=== PATIENT | female | born 1970 | race Caucasian/White ===

== ENCOUNTER 2022-07-07 11:45 | Observation (INO) | payer BC, OTHER ==
[2022-07-07 12:02] LABS: Absolute Lymphocytes (CBC) 2.1 K/uL (0.7-4.9); Hematocrit 41.4 % (36.0-45.0); Lymphocytes % 29.6 % (15.3-44.8); MCV 90.2 fL (80-100); MPV 7.1 fL (7.6-11.3); RBC Red Blood Cell Count 4.59 M/uL (3.86-4.86)
[2022-07-07] MEDS ORDERED: ASPIRIN EC 325 MG TABLET PO ONE (12:05)
[2022-07-07] MEDS ORDERED: NITROGLYCERIN 0.4 MG/TAB SL ONE (12:05)
[2022-07-07 12:21] LABS: Potassium 3.6 mmol/L (3.5-5.1)
--- NOTE | 2022-07-07 12:25 | RAD REPORT ---
EXAM DESCRIPTION: Dhiraj Single View07/07/2022 12:20 pm CLINICAL HISTORY: Chest pain COMPARISON: none FINDINGS: The lungs appear clear of acute infiltrate. The heart is normal size IMPRESSION: No acute abnormalities displayed
[2022-07-07 12:33] LABS: Troponin High Sensitivity 61.1 pg/mL (<58.9)
--- NOTE | 2022-07-07 12:46 | EDPHYS ---
Physician Documentation [facility] Name: Tawnya Galdamez Age: 51 yrs Sex: Female : 1970 Arrival Date: 07/07/2022 Time: 11:47 Bed 13 Private MD: ED Physician Jerome Siddiqui HPI: 07/07 12:18 This 51 yrs old Female presents to ER via Ambulatory with complaints of Chest Pain. rt 12:18 The patient or guardian reports chest pain that is located primarily in the substernal rt area. Onset: 2 hour(s) ago. The pain radiates to the left arm. Associated signs and symptoms: The patient has no apparent associated signs or symptoms. The chest pain is described as a pressure. Duration: The patient or guardian reports a single episode, that is still ongoing, but improving. Modifying factors: The symptoms are alleviated by nothing. the symptoms are aggravated by nothing. Severity of pain: At its worst the pain was moderate. The patient has not experienced similar symptoms in the past. Presents to the ED with a chest pain starting at 30 minutes prior to arrival. She started having a nonexertional left arm pain about 2 hours prior to arrival. The patient reports that there is some improvement of the symptoms however, they are still present. Denies other acute complaints at this time, symptoms are moderate in severity, no other aggravating or alleviating factors.. Historical: - Allergies: 11:54 No Known Allergies; iw - Home Meds: 11:54 None [Active]; iw - PMHx: 11:54 None; iw - PSHx: 11:54 back; tubal ligation; iw - Social history:: Smoking status: Patient reports the use of cigarette tobacco products, smokes one pack cigarettes per day. - Family history:: pertinent for heart disease. ROS: 12:18 Constitutional: Negative for fever, chills, and weight loss, Eyes: Negative for injury, rt pain, redness, and discharge, ENT: Negative for injury, pain, and discharge, Neck: Negative for injury, pain, and swelling, Respiratory: Negative for shortness of breath, cough, wheezing, and pleuritic chest pain, Abdomen/GI: Negative for abdominal pain, nausea, vomiting, diarrhea, and constipation, Back: Negative for injury and pain, MS/Extremity: Negative for injury and deformity, Skin: Negative for injury, rash, and discoloration, Neuro: Negative for headache, weakness, numbness, tingling, and seizure, Psych: Negative for depression, anxiety, suicide ideation, homicidal ideation, and hallucinations. 12:18 Cardiovascular: Positive for chest pain, Negative for edema. Exam: 12:18 Constitutional: This is a well developed, well nourished patient who is awake, alert, rt and in no acute distress. Head/Face: Normocephalic, atraumatic. Eyes: Pupils equal round and reactive to light, extra-ocular motions intact. Lids and lashes normal. Conjunctiva and sclera are non-icteric and not injected. Cornea within normal limits. Periorbital areas with no swelling, redness, or edema. ENT: Nares patent. No nasal discharge, no septal abnormalities noted. Tympanic membranes are normal and external auditory canals are clear. Oropharynx with no redness, swelling, or masses, exudates, or evidence of obstruction, uvula midline. Mucous membranes moist. Neck: Trachea midline, no thyromegaly or masses palpated, and no cervical lymphadenopathy. Supple, full range of motion without nuchal rigidity, or vertebral point tenderness. No Meningismus. Chest/axilla: Normal chest wall appearance and motion. Nontender with no deformity. No lesions are appreciated. Cardiovascular: Regular rate and rhythm with a normal S1 and S2. No gallops, murmurs, or rubs. Normal PMI, no JVD. No pulse deficits. Respiratory: Lungs have equal breath sounds bilaterally, clear to auscultation and percussion. No rales, rhonchi or wheezes noted. No increased work of breathing, no retractions or nasal flaring. Abdomen/GI: Soft, non-tender, with normal bowel sounds. No distension or tympany. No guarding or rebound. No evidence of tenderness throughout. Back: No spinal tenderness. No costovertebral tenderness. Full range of motion. Skin: Warm, dry with normal turgor. Normal color with no rashes, no lesions, and no evidence of cellulitis. MS/ Extremity: Pulses equal, no cyanosis. Neurovascular intact. Full, normal range of motion. Neuro: Awake and alert, GCS 15, oriented to person, place, time, and situation. Cranial nerves II-XII grossly intact. Motor strength 5/5 in all extremities. Sensory grossly intact. Cerebellar exam normal. Normal gait. Psych: Awake, alert, with orientation to person, place and time. Behavior, mood, and affect are within normal limits. 12:18 ECG was reviewed by the Attending Physician. rt Vital Signs: 11:52 BP 152 / 72; Pulse 52; Resp 16; Temp 98.0; Pulse Ox 98% on R/A; iw 12:28 BP 148 / 76; Pulse 50; Resp 18; Pulse Ox 99% on R/A; ko1 MDM: 11:50 Patient medically screened. rt 12:46 Differential diagnosis: abnormal EKG, acute myocardial infarction, acute pericarditis, rt chest wall pain, congestive heart failure pneumonia, pneumothorax. HEART Score: History: Highly Suspicious (2), ECG: Non specific repolarization disturbance / LBTB / PM (1), Age: > 45 and < 65 years (1), Risk Factors: > or = 3 Risk factors for atherosclerotic disease (2), [Active Smoker] [+ Family HX] [Obesity] Troponin: > 1 and < 3 x normal limit (1), Total Score = 6. Data reviewed: vital signs, nurses notes, lab test result(s), EKG, radiologic studies. ED course: Presents to the ED with chest pain that is resolved with nitrates. Patient was given aspirin. Patient with nonspecific EKG findings, slightly elevated troponin. Will be admitted for further care. Do not suspect PE, pneumothorax, TAD, pneumonia.. 07/07 11:51 Order name: Basic Metabolic Panel; Complete Time: 12:36 ld1 07/07 11:51 Order name: CBC with Diff; Complete Time: 12:32 ld1 07/07 11:51 Order name: Troponin HS; Complete Time: 12:36 ld1 07/07 12:52 Order name: Creatine Phosphokinase; Complete Time: 15:09 EDMS 07/07 12:52 Order name: Magnesium; Complete Time: 15:09 EDMS 07/07 12:52 Order name: NT PRO-BNP; Complete Time: 15:09 EDMS 07/07 12:52 Order name: Phosphorus; Complete Time: 15:09 EDMS 07/07 12:52 Order name: T4 Free; Complete Time: 15:09 EDMS 07/07 12:53 Order name: Thyroid Stimulating Hormone; Complete Time: 15:09 EDMS 07/07 12:53 Order name: Urinalysis [facility] 07/07 12:53 Order name: Basic Metabolic Panel [facility] 07/07 12:53 Order name: Basic Metabolic Panel [facility] 07/07 12:53 Order name: CBC with Automated Diff [facility]WA 07/07 12:53 Order name: CBC with Automated Diff [facility] 07/07 11:51 Order name: XRAY Chest (1 view); Complete Time: 12:32 ld1 07/07 11:51 Order name: EKG; Complete Time: 11:52 ld 07/07 11:51 Order name: Cardiac monitoring; Complete Time: 12:39 ld1 07/07 11:51 Order name: EKG - Nurse/Tech; Complete Time: 11:51 ld 07/07 12:52 Order name: Heart Healthy [facility]WA 07/07 12:55 Order name: Echo with Doppler [facility] 07/07 12:55 Order name: Troponin High Sensitivity [facility] 07/07 12:55 Order name: Troponin High Sensitivity [facility] 07/07 12:55 Order name: Troponin High Sensitivity [facility] 07/07 12:57 Order name: Hemoglobin A1c [facility] 07/07 12:57 Order name: Lipid Profile; Complete Time: 15:09 [facility]WA 07/07 13:02 Order name: COVID-19 SARS RT PCR rt 07/07 14:50 Order name: SARS-COV-2 Antigen Rapid; Complete Time: 15:09 [facility] 07/07 15:09 Order name: EKG; Complete Time: 15:10 rt 07/07 11:51 Order name: IV Saline Lock; Complete Time: 11:52 [facility] 07/07 11:51 Order name: Labs collected and sent; Complete Time: 11:52 [facility] 07/07 11:51 Order name: O2 Per Protocol; Complete Time: 11:52 [facility] 07/07 11:51 Order name: O2 Sat Monitoring; Complete Time: 11:52 [facility] 07/07 15:09 Order name: EKG - Nurse/Tech; Complete Time: 15:17 rt EC:18 Rate is 46 beats/min. Rhythm is regular, Sinus bradycardia with No ectopy. QRS [place] is rt Normal. VA interval is normal. QRS interval is normal. QT interval is normal. No Q waves. Clinical impression: NSR w/ Non-specific ST/T Changes. Interpreted by me. 15:20 Rate is 52 beats/min. Rhythm is regular, Sinus bradycardia with No ectopy. QRS [place] is rt Normal. VA interval is normal. QRS interval is normal. Clinical impression: NSR w/ Non-specific ST/T Changes. Interpreted by me. Administered Medications: 12:07 Drug: Nitroglycerin 0.4 mg Route: Sublingual; iw 12:07 Drug: Aspirin 325 mg Route: PO; iw Disposition Summary: 07/07/22 12:45 Hospitalization Ordered Hospitalization Status: Observation rt Provider: Ruben Dhillon rt Location: Telemetry/MedSurg (observation) rt Condition: Stable rt Problem: new rt Symptoms: have improved rt Bed/Room Type: Standard rt Room Assignment: rt Diagnosis - Chest pain, unspecified rt Forms: - Medication Reconciliation Form rt - SBAR form rt Signatures: Dispatcher [employer] Karol Williamson RN RN iw Leah Cortez RN RN ld1 Jerome Siddiqui MD MD rt
--- NOTE | 2022-07-07 12:46 | ER ---
Nurse's Notes [facility] Name: Tawnya Galdamez Age: 51 yrs Sex: Female : 1970 Arrival Date: 07/07/2022 Time: 11:47 Bed 13 Private MD: Diagnosis: Chest pain, unspecified Presentation: 07/07 11:52 Chief complaint: Patient states: sitting at her desk and her left arm started hurting iw about 2 hours ago, then about 30 minutes ago she started having midsternal chest pain, feels like pressure and at times sharp. Coronavirus screen: At this time, the client does not indicate any symptoms associated with coronavirus-19. Ebola Screen: Patient negative for fever greater than or equal to 101.5 degrees Fahrenheit, and additional compatible Ebola Virus Disease symptoms Patient denies exposure to infectious person. Patient denies travel to an Ebola-affected area in the 21 days before illness onset. No symptoms or risks identified at this time. Initial Sepsis Screen: Does the patient meet any 2 criteria? No. Patient's initial sepsis screen is negative. Does the patient have a suspected source of infection? No. Patient's initial sepsis screen is negative. Risk Assessment: Do you want to hurt yourself or someone else? Patient reports no desire to harm self or others. Onset of symptoms was July 07, 2022. 11:52 Method Of Arrival: Ambulatory iw 11:52 Acuity: CITLALI 2 iw Historical: - Allergies: 11:54 No Known Allergies; iw - Home Meds: 11:54 None [Active]; iw - PMHx: 11:54 None; iw - PSHx: 11:54 back; tubal ligation; iw - Social history:: Smoking status: Patient reports the use of cigarette tobacco products, smokes one pack cigarettes per day. - Family history:: pertinent for heart disease. Screenin:28 Abuse screen: Denies threats or abuse. Denies injuries from another. Nutritional ko1 screening: No deficits noted. Tuberculosis screening: No symptoms or risk factors identified. Fall Risk None identified. Assessment: 11:57 General: Appears in no apparent distress. uncomfortable, Behavior is calm, cooperative, ko1 appropriate for age. Pain: Complains of pain in chest Pain does not radiate. Pain began gradually. Neuro: No deficits noted. Cardiovascular: Reports chest pain. Respiratory: No deficits noted. GI: No deficits noted. : No deficits noted. EENT: No deficits noted. Derm: No deficits noted. Musculoskeletal: No deficits noted. Vital Signs: 11:52 BP 152 / 72; Pulse 52; Resp 16; Temp 98.0; Pulse Ox 98% on R/A; iw 12:28 BP 148 / 76; Pulse 50; Resp 18; Pulse Ox 99% on R/A; ko1 ED Course: 11:47 Patient arrived in ED. mr 11:48 Jerome Siddiqui MD is Attending Physician. rt 11:52 Inserted saline lock: 20 gauge in right antecubital area, using aseptic technique. ld1 Blood collected. 11:54 Triage completed. iw 11:54 Arm band placed on. iw 12:00 Patient maintains SpO2 saturation greater than 95% on room air. ko1 12:00 Patient has correct armband on for positive identification. Placed in gown. Bed in low ko1 position. Call light in reach. Side rails up X 1. Client placed on continuous cardiac and pulse oximetry monitoring. NIBP monitoring applied. cardiac monitor on. 12:02 Conchita Warren, RN is Primary Nurse. ko1 12:21 XRAY Chest (1 view) In Process Unspecified. EDMS 12:45 Ruben Dhillon MD is Hospitalizing Provider. rt 14:25 COVID-19 SARS RT PCR Sent. ko1 16:16 No provider procedures requiring assistance completed. Patient admitted, IV remains in iw place. Administered Medications: 12:07 Drug: Nitroglycerin 0.4 mg Route: Sublingual; iw 12:07 Drug: Aspirin 325 mg Route: PO; iw Medication: 16:16 VIS not applicable for this client. iw Outcome: 12:45 Decision to Hospitalize by Provider. rt 16:16 Admitted to Data Librarian accompanied by nurse, family with patient, via stretcher, on iw monitor, with chart. 16:16 Condition: good 16:16 Discharge instructions given to patient, family, Instructed on the need for admit, Demonstrated understanding of instructions, follow-up care. 16:17 Patient left the ED. iw Signatures: Dispatcher [facility] Anjel Janette mr Karol Martinez RN RN iw Leah Cortez RN RN ld1 Conchita Warren, BUTCH RN ko1 Jerome Siddiqui MD MD rt Corrections: (The following items were deleted from the chart) 12:13 11:52 BP 152 / 72; Pulse 52bpm; Resp 16bpm; Pulse Ox 98% RA; iw iw
[2022-07-07] MEDS ORDERED: ACETAMINOPHEN 325 MG TABLET PO PRN (12:48)
[2022-07-07] MEDS ORDERED: HYDROCODONE/APAP 5/325 MG TAB PO PRN (12:48)
[2022-07-07] MEDS ORDERED: ONDANSETRON 4 MG/2 ML VIAL IV PRN (12:50)
[2022-07-07] MEDS ORDERED: HYDRALAZINE HCL 20 MG/ML VIAL IV PRN (12:51)
--- NOTE | 2022-07-07 12:58 | P.HP ---
Certification for Inpatient Patient admitted to: Observation With expected LOS: <2 Midnights Patient will require the following post-hospital care: None Practitioner: I am a practitioner with admitting privileges, knowledge of patient current condition, hospital course, and medical plan of care. Services: Services provided to patient in accordance with Admission requirements found in Title 42 Section 412.3 of the Code of Federal Regulations <Deepa Atwood - Last Filed: 07/07/22 18:35> Patient History Date of Service: 07/07/22 Reason for admission: Chest pain History of Present Illness: Patient is a 51-year-old female with a past medical history significant for nicotine dependence and obesity who presents with complaint of chest pain while at work today. Patient reported that she initially started having left elbow pain and after about 1 hour patient started having substernal chest pain. Patient rated pain as 8/10 in severity and described pain as stabbing\pressure in quality. Patient also reported that chest pain radiates to her left shoulder. Patient denies any other signs and symptoms. Symptoms are aggravated or relieved by nothing. Patient decided to present to the hospital for medical evaluation. Home medications list reviewed: Yes - Past Medical/Surgical History Has patient received pneumonia vaccine in the past: No Diabetic: No -: Nicotine dependence -: Obesity Past Surgical History: Reviewed- Non-Contributory - Family History Father -: Other (see notes) (Afib) Mother -: Diabetes - Social History Smoking Status: Current every day smoker Counseled patient to stop smoking for: less than 10 minutes Smoking therapy provided: Yes Patient receptive to therapy: Yes Alcohol use: Yes CD- Drugs: No Caffeine use: Yes Place of Residence: Home <MarkgageDeepa sparks [place] - Last Filed: 07/07/22 18:35> Date of Service: 07/08/22 <Ruben Dhillon - Last Filed: 07/08/22 09:17> Allergies No Known Allergies Allergy (Unverified 07/07/22 13:00) Review of Systems General: Unremarkable Eyes: Unremarkable ENT: Unremarkable Respiratory: Unremarkable Cardiovascular: Chest Pain Gastrointestinal: Unremarkable Genitourinary: Unremarkable Musculoskeletal: Shoulder Pain, Arm Pain Integumentary: Unremarkable Neurological: Unremarkable Lymphatics: Unremarkable <LeoraymundogageDebra sparksalissa Sparks - Last Filed: 07/07/22 18:35> Physical Examination - Physical Exam General: Alert, In no apparent distress, Oriented x3, Cooperative HEENT: Atraumatic, PERRLA, Mucous membr. moist/pink, EOMI, Sclerae nonicteric Neck: Supple, 2+ carotid pulse no bruit, No LAD, Without JVD or thyroid abnormality Respiratory: Clear to auscultation bilaterally, Normal air movement Cardiovascular: No edema, Regular rate/rhythm, Normal S1 S2 Capillary refill: <2 Seconds Gastrointestinal: Normal bowel sounds, Soft and benign, No tenderness Musculoskeletal: Other (Left arm tenderness ) Integumentary: No rashes, No breakdown, No significant lesion, No erythema, No warmth Neurological: Normal gait, Normal speech, Normal strength at 5/5 x4 extr, Normal tone, Sensation intact, Normal affect Lymphatics: No axilla or inguinal lymphadenopathy - Studies Laboratory Data (last 24 hrs) 07/07/22 11:54: WBC 7.20, Hgb 13.8, Hct 41.4, Plt Count 386 07/07/22 11:54: Sodium 135 L, Potassium 3.6, BUN 14, Creatinine 0.92, Glucose 117 H <Deepa Atwood - Last Filed: 07/07/22 18:35> - Studies Laboratory Data (last 24 hrs) 07/07/22 11:54: Triglycerides 122, Cholesterol 231 H, HDL Cholesterol 47, Cholesterol/HDL Ratio 4.91 07/07/22 11:54: Phosphorus 3.1, Magnesium 2.2 07/07/22 11:54: WBC 7.20, Hgb 13.8, Hct 41.4, Plt Count 386 07/07/22 11:54: Sodium 135 L, Potassium 3.6, BUN 14, Creatinine 0.92, Glucose 117 H <Ruben Dhillon - Last Filed: 07/08/22 09:17> Assessment and Plan - Plan --Chest pain. To rule out ACS. Will trend serial troponin--currently elevated. Echocardiogram pending. Cardiology consulted. Telemetry to monitor for any significant arrhythmia. Continue aspirin and statin. Will await further recommendation from business support administrator. --Elevated blood pressure without diagnosis of hypertension. We will manage BP with hydralazine as needed. --Class II obesity. Likely secondary to excess calories intake. Patient counseled on weight reduction, diet and exercise therapy. --Prediabetes. Hemoglobin A1c is 5.7. Patient counseled on diet and exercise therapy. --Acute pain. We will manage pain with current pain medication regimen. --Dyslipidemia. Patient placed on statin. --CKD 2. Baseline functions unknown. We will continue to monitor renal functions --Nicotine dependence. Patient placed on nicotine patch and counseled on tobacco cessation. --DVT prophylaxis with Lovenox subQ. Discharge Plan: Home Plan to discharge in: 48 Hours - Advance Directives Does patient have a Living Will: No Does patient have a Durable POA for Healthcare: No - Code Status/Comfort Care Code Status Assessed: Yes Physician Review: Patient Assessed, Agree with Above Assessment and Plan Critical Care: No <Deepa Atwood - Last Filed: 07/07/22 18:35> Physician Review: Patient Assessed, Agree with Above Assessment and Plan <Ruben Dhillon - Last Filed: 07/08/22 09:17>
[2022-07-07 14:28] LABS: Magnesium 2.2 mg/dL (1.8-2.4); Phosphorus 3.1 mg/dL (2.5-4.9); Thyroid Stimulating Hormone 2.04 uIU/mL (0.360-3.740)
[2022-07-07 14:49] LABS: SARS-CoV-2 Antigen Rapid Res Negative (Negative)
[2022-07-07 15:49] VITALS: BMI 34.4
[2022-07-07] MEDS ORDERED: LIDOCAINE 1% 20 ML MDV ONE (16:05)
[2022-07-07] MEDS ORDERED: FENTANYL CITR 100 MCG/2 ML ONE (16:05)
[2022-07-07] MEDS ORDERED: HEPA 1000U/500MLS 2,000 UNIT/1,000 ML BAG IV ONE (16:05)
[2022-07-07] MEDS ORDERED: VERAPAMIL HCL 10 MG/4 ML VIAL IV ONE (16:06)
[2022-07-07] MEDS ORDERED: MIDAZOLAM HCL 2 MG/2 ML INJ ONE (16:06)
[2022-07-07] MEDS ORDERED: HEPARIN 5000 UNIT/ML 1 ML VIAL ONE (16:06)
[2022-07-07] MEDS ORDERED: HEPARIN 10,000 UNIT/10 ML VIAL IV ONE ×2 (16:06→17:16)
[2022-07-07] MEDS ORDERED: NA CHLORIDE 0.9% 500 ML ONE (16:06)
[2022-07-07] MEDS ORDERED: ATROPINE SULF 1 MG/10 ML SYR IV ONE (16:06)
[2022-07-07] MEDS ORDERED: TICAGRELOR 90 MG TABLET PO ONE (17:16)
[2022-07-07] MEDS ORDERED: HEPA 1000U/500MLS 1,000 UNIT/500 ML BAG IV ONE (17:23)
--- NOTE | 2022-07-07 18:33 | OP ---
Date of Procedure: 07/07/2022 Surgeon: BALTA PALOMINO Procedures Performed: 1.Selective coronary angiogram. 2.PCI of critical mid to distal RCA stenosis, which is a culprit of the SC. It was 99% with ELIF 2 flow, status post successful PCI, used 3.0 x 20 mm Synergy drug-eluting stent with ELIF-3 flow post P CI and 0% residual stenosis. Indication: Non-ST elevation myocardial infarction. Access: Right femoral artery 6-Armenian closed with 6-Armenian Angio-Seal. Complications: None. Bleeding: Less than 50 mL. Anesthesia: Total sedation time was 55 minutes. Used fentanyl and Versed. Description Of Procedure: After risks, benefits, and alternatives were explained, the patient agreed to procedure and signed informed consent. The patient was brought into the cardiac catheterization laboratory, prepped and draped in the usual sterile fashion. Then, I tried to access radial artery; however, artery is very small. Then, I accessed right femoral artery using micropuncture kit, ultras ound guidance and fluoroscopy, and placed a 6-Armenian Huntington sheath. Then, I took a 6-Armenian JL4 ca theter into the aortic root, engaged left main, took standard views and exchanged for 6-Armenian JR4 ca theter, engaged the RCA, took standard views and then gave systemic heparin to assure ACT level above 250, and we gave 180 mg of Brilinta and the patient already received aspirin in the emergency room. Then, I took a 6-Armenian 3DRC guide into the aortic root over a J-wire, engaged the RCA and tried the Run-Through wire; however, could not cross the stenosis. Then, I took a Fielder XT wire and I was a ble to cross the stenosis and then used a 3.0 x 15 mm Compliant balloon up in the lesion and the lesi on expanded very well. Then, I took a 3.0 x 20 mm Synergy drug-eluting stent across the area of sten osis and the stent expanded very well and then angiographically post stent placement, there was 0% re sidual stenosis and ELIF-3 flow. I then removed the wire and the guide and the sheath, and placed a 6-Armenian Angio-Seal for closure with good hemostasis. Findings: 1.Left main; large, normal. 2.LAD; proximal to mid is normal, normal diagonal branches and then mid to distal, there was a short segment of 30% stenosis. 3.Left circumflex is a rather large vessel, codominant and normal. 4.RCA; codominant with proximal 50% and then proximal to mid another long segment of 50% stenosis an d then mid to distal, there was 99%, which is a culprit for the SC, status post successful PCI as out lined above. Conclusion: 1.Severe mid RCA stenosis, 99%, which is the culprit for the SC, status post successful PCI. 2.Moderate proximal to mid RCA stenosis and mild LAD stenosis. Plan: Admit. Start Brilinta, aspirin, high dose statin and observe overnight and plan for if the pa tient does well discharge in the next 24 hours and follow up as an outpatient. We are going to plan to do a stress test in about a month to assess the need to do a PCI of proximal and mid RCA. This wa s not done today as it is only 50% stenosis and the patient received large load of contrast. We will plan to evaluate this as an outpatient basis at a later time. The [facility] in a stable condition. SR/MODL Voice ID: [id number] Report ID: [id number]
--- NOTE | 2022-07-07 18:48 | CON ---
Date of Consultation: 07/07/2022 Reason For Consultation: Chest pain and elevated troponin. History Of Present Illness: This is a 51-year-old female, no medical history, active smoker about a pack or more per day, presented with chest pressure, pressure to left side, radiates to the left uppe r extremity and neck, lasted about 2 hours. Upon arrival to the emergency room, the pain completely resolved. The patient at the present time does not have any chest pain. She apparently has dyslipid emia that is untreated and her LDL cholesterol is 160. Denies having any nausea, vomiting, or diapho resis. No known cardiac history before. Past Medical History: None. Medications: None. Allergies: NO KNOWN DRUG ALLERGIES. Family History: No premature coronary artery disease or cancer. Social History: She is active smoker. Does not drink or use any drugs. Review of Systems: All systems reviewed and they were negative except what mentioned in HPI. Physical Examination: Vital Signs: Reviewed. Head and Neck: Pupils are equal, reactive to light. Intact eye movements. No JVD. No cervical lym phadenopathy. Neck is supple. Thyroid is not enlarged. Lungs: Clear to auscultation bilaterally. No rhonchi, wheezing, or crackles. No accessory muscle u se. Heart: Regular rate and rhythm. No extra sounds. Abdomen: Soft, nontender. Bowel sounds positive. No organomegaly. No masses or hernia. No rigidi ty or rebound. Extremities: No edema, clubbing, or cyanosis. Intact pulses. Skin: No rash. Neurologic: Alert, awake, oriented x3. No acute focal deficits appreciated. Lymph Nodes: No cervical or axillary lymphadenopathy. Investigations: First troponin was 61 and NT-proBNP was slightly elevated. LDL cholesterol is 116. BUN is 14, creatinine 0.92. Hemoglobin is 13.8. Assessment And Recommendations: 1.Chest pain, likely unstable angina versus acute coronary syndrome. Agree with aspirin load and st art her on Lovenox 1 mg/kg subcu q.12 hours and trend 2 more sets of cardiac enzymes and obtain echoc ardiogram. Further plan will be according to the troponin trend. If there is significant increase, then we will plan for coronary angiogram tomorrow, otherwise a stress test can be an option if the tr oponin does not go up. 2.Dyslipidemia, very high LDL cholesterol. Start her on Lipitor 40 mg at bedtime. 3.Smoker. She was counseled in details against smoking. SR/MODL Voice ID: [id number] Report ID: [id number]
[2022-07-07] MEDS ORDERED: ATORVASTATIN 40 MG TAB PO SCH (21:00)
[2022-07-08 03:58] LABS: Absolute Lymphocytes (CBC) 1.2 K/uL (0.7-4.9); Hematocrit 35.9 % (36.0-45.0); Lymphocytes % 15.8 % (15.3-44.8); MCV 89.3 fL (80-100); MPV 7.7 fL (7.6-11.3); RBC Red Blood Cell Count 4.02 M/uL (3.86-4.86)
[2022-07-08 04:12] LABS: Potassium 3.7 mmol/L (3.5-5.1)
[2022-07-08] MEDS ORDERED: INFLUENZA VACCINE (for 6+ mo) 0.5 ML DOSE IMVAC ONE (08:00)
--- NOTE | 2022-07-08 08:28 | P.DS ---
Admission Date: 07/07/22 Discharge Date: 07/08/22 Disposition: ROUTINE DISCHARGE Discharge Condition: GOOD Reason for Admission: Chest pain Consultations: 1. Cardiology Procedures: - 07/07/2022: 1. Selective coronary angiogram. 2. PCI of critical mid to distal RCA stenosis, which is a culprit of the IN. It was 99% with ELIF 2 flow, status post successful PCI, used 3.0 x 20 mm Synergy drug-eluting stent with ELIF-3 flow post PCI and 0% residual stenosis Hospital Course: DIAGNOSES: # Non-ST Segment Elevation Myocardial Infarction # Coronary Artery Disease # Tobacco Use Disorder # Hypertension # Dyslipidemia HOSPITAL COURSE: Ms. Tawnya Galdamez is a pleasant 51-year-old female with a past medical history significant for hypertension, dyslipidemia, and tobacco use disorder who was admitted to [facility] on 07/07/2022 for left arm/left chest pain. She was admitted to the Medicine service. Her EKG did not meet STEMI criteria. Her d-dimer was 362. Her troponin trend was 61.1 -> 245.3 -> 1139.8. Her chest x-ray revealed, "no acute abnormalities displayed." Cardiology was consulted and she was evaluated by Dr. Rizo. She underwent a left heart catheterization. She was found to have 99% occlusion to the mid-right coronary artery and 30% occlusion to the mid-distal left anterior descending artery. A drug-eluting stent was placed in the right coronary artery. She was monitored overnight and reported complete resolution of her symptoms. Dr. Rizo has cleared her for discharge with aspirin, atorvastatin, metoprolol, and ticagrelor. An EUNICE- inhibitor/ARB was not added to her regimen due to soft blood pressures. A decision on when/if to start this should be made at her next Cardiology appoi ntment. On 07/08/2022, she was seen on morning rounds and deemed medically stable for discharge. She was discharged with instructions to schedule follow-up appointments with her PCP and with Cardiology (Dr. Rizo). Extensive tobacco cessation counseling was provided. She was provided prescriptions for atorvastatin, metoprolol, and ticagrelor. She and her family members were given the opportunity to ask questions and reported no further questions. Furthermore, all questions were answered to the best of my ability. A copy of this discharge summary will be sent to the above providers to facili varela continuity of care. Today, I personally spent 25 minutes on her case, of which greater than 50% of the time was spent in patient education, counseling, and coordination of care as described above. Vital Signs/Physical Exam: Temp Pulse Resp BP Pulse Ox 97.5 F 70 18 106/57 L 96 07/08/22 04:00 07/08/22 04:00 07/08/22 04:00 07/08/22 04:00 07/08/22 04:00 General: Alert, In no apparent distress, Oriented x3 HEENT: Atraumatic, PERRLA, Mucous membr. moist/pink, EOMI, Sclerae nonicteric Neck: JVD not distended Respiratory: Clear to auscultation bilaterally, Normal air movement Cardiovascular: No edema, Regular rate/rhythm, Normal S1 S2, No gallops, No rubs, No murmurs Gastrointestinal: Normal bowel sounds, Soft and benign, Non-distended, No tenderness, No rebound, No guarding Musculoskeletal: No clubbing Integumentary: No rashes Neurological: Normal speech, Cranial nerves 3-12 intact, Normal affect Laboratory Data at Discharge: WBC 7.60 K/uL (4.3-10.9) 07/08/22 03:05 Hgb 12.1 g/dL (12.0-15.0) D 07/08/22 03:05 Hct 35.9 % (36.0-45.0) L 07/08/22 03:05 Plt Count 297 K/uL (152-406) 07/08/22 03:05 Sodium 138 mmol/L (136-145) 07/08/22 03:05 Potassium 3.7 mmol/L (3.5-5.1) 07/08/22 03:05 BUN 14 mg/dL (7-18) 07/08/22 03:05 Creatinine 0.83 mg/dL (0.55-1.3) 07/08/22 03:05 Glucose 123 mg/dL (74-106) H 07/08/22 03:05 Phosphorus 3.1 mg/dL (2.5-4.9) 07/07/22 11:54 Magnesium 2.2 mg/dL (1.8-2.4) 07/07/22 11:54 Triglycerides 122 mg/dL (<150) 07/07/22 11:54 Cholesterol 231 mg/dL (<200) H 07/07/22 11:54 HDL Cholesterol 47 mg/dL (40-60) 07/07/22 11:54 Cholesterol/HDL Ratio 4.91 07/07/22 11:54 Home Medications: Aspirin [Adult Low Dose Aspirin EC] 81 mg PO DAILY #1 07/08/22 Atorvastatin Calcium [Lipitor] 40 mg PO BEDTIME #30 tab 07/08/22 Metoprolol Tartrate 12.5 mg PO BID #30 tab 07/08/22 Nicotine [Nicotine Patch] 7 mg TD DAILY #30 patch 07/08/22 Ticagrelor [Brilinta*] 90 mg PO BID #60 tab 07/08/22 New Medications: Aspirin [Adult Low Dose Aspirin EC] 81 mg PO DAILY #1 Ticagrelor [Brilinta*] 90 mg PO BID #60 tab Atorvastatin Calcium [Lipitor] 40 mg PO BEDTIME #30 tab Metoprolol Tartrate 12.5 mg PO BID #30 tab Nicotine [Nicotine Patch] 7 mg TD DAILY #30 patch Physician Discharge Instructions: 1. Please call and schedule a follow-up appointment with your PCP in 3-5 days 2. Please call and schedule a follow-up appointment with Cardiology (Dr. Rizo) in 5-7 days Diet: AHA Activity: Ad real Followup: Unknown,U [Primary Care Provider] - Ahmet Rizo MD [ACTIVE - CAN ADMIT] - Time spent managing pt's care (in minutes): 25
[2022-07-08] MEDS ORDERED: ASPIRIN 81 MG CHEWABLE TABLET PO SCH (09:00)
[2022-07-08] MEDS ORDERED: NICOTINE 21 MG/PAT TD SCH (09:00)
[2022-07-08] MEDS ORDERED: ASPIRIN 325 MG TAB PO SCH (09:00)
[2022-07-08] MEDS ORDERED: POTASSIUM CL SA 10 MEQ TAB PO ONE (09:00)
[2022-07-08] MEDS ORDERED: TICAGRELOR 90 MG TABLET PO SCH (09:00)
[2022-07-08] MEDS ORDERED: ENOXAPARIN 40 MG/0.4 ML SQ SCH (09:00)
[2022-07-08 09:57] VITALS: BP 126/64; TEMP 97.7
[2022-07-08 10:15] VITALS: O2SAT 97
--- NOTE | 2022-07-08 11:36 | EKG ---
Test Date: 2022-07-07 Test Time: 15:14:58 Intervention Teacher: GRACIELA MEASUREMENT RESULTS: Intervals: Rate: 52 MO: 146 QRSD: 96 QT: 448 QTc: 416 [place]: P: 48 MO: 146 QRS: 66 T: 63 INTERPRETIVE STATEMENTS: Sinus bradycardia Otherwise normal ECG Compared to ECG 07/07/2022 11:46:48 ST (T wave) deviation no longer present Electronically Signed On 07-08-22 11:34:34 DECISION SCIENCE ANALYST by Kris Waite
--- NOTE | 2022-07-08 11:37 | EKG ---
Test Date: 2022-07-07 Test Time: 11:46:48 Substitute Nurse: GRACIELA MEASUREMENT RESULTS: Intervals: Rate: 46 SC: 162 QRSD: 104 QT: 424 QTc: 371 [place]: P: 43 SC: 162 QRS: 69 T: 90 INTERPRETIVE STATEMENTS: Marked sinus bradycardia Nonspecific ST abnormality Abnormal ECG Compared to ECG 09/16/2010 09:13:19 ST (T wave) deviation now present Sinus rhythm no longer present Electronically Signed On 07-08-22 11:34:39 ROPEWALK ROPE MAKER by Kris Waite
--- NOTE | 2022-07-08 11:48 | ECHO ---
HEIGHT: 5 ft 11 in WEIGHT: 247 lb 0 oz DATE OF STUDY: 07/08/[address]: 2-DIMENSIONAL: YES M.MODE: YES DOPPLER: YES COLOR FLOW: YES TDS: PORTABLE: YES DEFINITY: BUBBLE STUDY: DIAGNOSIS: CHEST PAIN CARDIAC HISTORY: CATHERIZATION: YES SURGERY: NO PROSTHETIC VALVE: NO PACEMAKER: NO MEASUREMENTS (cm) DIASTOLIC (NORMALS) SYSTOLIC (NORMALS) IVSd 1.4 (0.6-1.2) LA Diam 2.8 (1.9-4.0) LVEF 63% LVIDd 4.1 (3.5-5.7) LVIDs 2.7 (2.0-3.5) %FS 34% LVPWd 1.4 (0.6-1.2) Ao Diam 2.7 (2.0-3.7) 2 DIMENSIONAL ASSESSMENT: RIGHT ATRIUM: NORMAL LEFT ATRIUM: NORMAL RIGHT VENTRICLE: NORMAL LEFT VENTRICLE: LEFT VENTRICULAR HYPERTROPHY TRICUSPID VALVE: NORMAL MITRAL VALVE: NORMAL PULMONIC VALVE: NORMAL AORTIC VALVE: NORMAL PERICARDIAL EFFUSION: NONE AORTIC ROOT: NORMAL LEFT VENTRICULAR WALL MOTION: NORMAL DOPPLER/COLOR FLOW: NORMAL COMMENTS: 1. LEFT VENTRICULAR HYPERTROPHY 2. NO WALL MOTION ABNORMALITY 3. NO EFFUSION 4. NORMAL LEFT VENTRICULAR EJECTION FRACTION TECHNOLOGIST: CAL BHATT
--- NOTE | 2022-07-10 17:50 | PN ---
The patient was admitted on 07/[address] Dhillon's service, underwent an RCA stent. She is presently o n Brilinta, statin, beta-blockers. No specific complaints at this point. Catheterization entry site is intact. We will plan to send Mrs. Galdamez home on Brilinta, statin, and beta-facundo. We will se e her in the office in the next 2 weeks. SAPPHIRE/DEV Voice ID: [id number] Report ID: [id number]
== END 2022-07-08 10:58 | disposition home or self-care (01) ==
LOC: ER 11:45 → ERHOLD 12:45 → 2ND 17:51
PROVIDERS: ADMIT Internal Medicine; ATTEND Internal Medicine
DX: I21.4 Non-ST elevation (NSTEMI) myocardial infarction (principal); I25.110 Atherosclerotic heart disease of native coronary artery with unstable angina pectoris; I12.9 Hypertensive chronic kidney disease with stage 1 through stage 4 chronic kidney disease, or unspecified chronic kidney disease; N18.2 Chronic kidney disease, stage 2 (mild); E78.5 Hyperlipidemia, unspecified; R73.03 Prediabetes; E66.9 Obesity, unspecified; Z68.34 Body mass index [BMI] 34.0-34.9, adult; Z71.3 Dietary counseling and surveillance; Z71.82 Exercise counseling; F17.210 Nicotine dependence, cigarettes, uncomplicated; Z71.6 Tobacco abuse counseling; Z20.822 Contact with and (suspected) exposure to COVID-19; Z83.3 Family history of diabetes mellitus
CPT/HCPCS: 93005 ×2; 93306; 85025 ×2; 80048 ×2; 36415 ×2; 83735; 82550; 84100; 80061; 85379; 85347 ×2; 84443; 83036; 84484 ×3; 84439; 83880; 71045; 90471; 92928; 93458; 76937; 99285; 87811; C1893; C1760; Q9967; G0269; C1725; J1644 ×3; Q2035; J1650; J2250; J3010; J7040; G0378 ×3; J0461